=== PATIENT | male | born 1985 | race Caucasian/White ===

== ENCOUNTER 2016-10-30 20:58 | Emergency (ER) | payer SELFPAY ==
[2016-10-30 21:21] VITALS: BP 128/79; RESP 20; TEMP 98
--- NOTE | 2016-10-30 21:32 | ED PDOC ---
HPI: Chest Pain Time Seen by Provider: 10/30/16 21:23 Chief Complaint (Nursing): Palpitations Chief Complaint (Provider): chest pain, palpitations History Per: Patient Additional Complaint(s): 30-year-old male with history of acid reflux presents to emergency department with chest pain and palpitations that started 2 hours prior to arrival. [place] [employer] [place] developed palpitations. Patient wears an [employer] watch and states the watch read his heart rate as 180 [place]. Patient complains of feeling run down but denies fever, chills, cough or other URI symptoms. Patient arrived from the [place] and a half ago and is here on vacation. Patient also complains of mild shortness of breath. Patient also reports that he had 1 episode of watery, non-bloody diarrhea earlier today as well with no associated nausea or vomiting. Past Medical History Reviewed: Historical Data, Nursing Documentation, Vital Signs Vital Signs: Last Vital Signs Temp 98.0 F 10/30/16 21:19 Pulse 119 H 10/30/16 21:19 Resp 20 10/30/16 21:19 BP 128/79 10/30/16 21:19 Pulse Ox 99 10/30/16 23:45 - Medical History PMH: GERD - Surgical History Surgical History: No Surg Hx - Family History Family History: States: No Known Family Hx - Living Arrangements Living Arrangements: With Family - Social History Current smoker - smoking cessation education provided: Yes (sometimes) Alcohol: None Drugs: Denies - Allergies Allergies/Adverse Reactions: Allergies Allergy/AdvReac Type Severity Reaction Status Date / Time No Known Allergies Allergy Verified 10/30/16 21:19 ARTEMIO Risk Score for UA/NSTEMI - ARTEMIO Risk Score Age > 64: NO 3 or more CAD Risk Factors: NO Known CAD (Stenosis greater than 50%): NO Aspirin use in past 7 days: NO Severe Angina: NO EKG ST changes greater than 0.5mm: NO Positive Cardiac Marker: NO ARTEMIO Score: 0 Risk %: 5% Curb-65 Severity Score - CURB-65 Severity Score Confusion: No Bun >19mg/dl (>7mmol/L): No Respiratory Rate greater than/equal to 30: No Systolic BP <90 or Diastolic BP less than/equal 60mmHg: No Age >64: No Curb-65 Score: 0 Percentage 30-day mortality: 0.6% Wells Criteria for PE - Wells Criteria for Pulmonary Embolism Clinical Signs and Symptoms of DVT: No P.E is #1 Diagnosis, or Equally Likely: No Heart Rate >100: Yes Immobilization at least 3 days;Surgery previous 4 weeks: No Previous, objectively diagnosed PE or DVT: No Hemoptysis: No Malignancy w/treatment within 6 months, or palliative: No Total Score: 1.5 Review of Systems ROS Statement: Except As Marked, All Systems Reviewed And Found Negative Constitutional: Negative for: Fever, Chills Cardiovascular: Positive for: Chest Pain, Palpitations Respiratory: Positive for: Shortness of Breath. Negative for: Cough, SOB with Exertion Gastrointestinal: Positive for: Diarrhea (x 1). Negative for: Nausea, Vomiting , Abdominal Pain Neurological: Positive for: Dizziness. Negative for: Altered Mental Status, Headache Physical Exam - Reviewed Nursing Documentation Reviewed: Yes Vital Signs Reviewed: Yes - Physical Exam Appears: Positive for: Well, Non-toxic, No Acute Distress Head Exam: Positive for: ATRAUMATIC, NORMAL INSPECTION Skin: Negative for: Diaphoresis, Rash Eye Exam: Positive for: Normal appearance, EOMI, PERRL Cardiovascular/Chest: Positive for: Regular Rate, Rhythm Respiratory: Positive for: Normal Breath Sounds. Negative for: Wheezing, Respiratory Distress Gastrointestinal/Abdominal: Positive for: Soft. Negative for: Tenderness, Distended, Guarding Extremity: Positive for: Normal ROM. Negative for: Pedal Edema Neurologic/Psych: Positive for: Alert, Oriented - Laboratory Results Result Diagrams: 10/30/16 21:59 10/30/16 21:59 - ECG Interpretation Of ECG: Sinus tach 119, no acute finding, reviewed by PA and ED attending O2 Sat by Pulse Oximetry: 99 Pulse Ox Interpretation: Normal - Other Rad CXR X-Ray: Interpreted by Me, Viewed By Me X-Ray Interpretation: no acute finding Medical Decision Making Medical Decision Makin30 year old with palpitations and chest pain Plan: EKG CXR CBC CMP Trop D-Dimer IVF Flu swab Patient is aware of all diagnostic testing results, all questions answered. Patient feels much better after fluid bolus. He states chest pain and palpitations have resolved. Repeat vital signs are normal, heart rate now at 92. Patient was instructed to drink plenty of fluids and was advised to follow up with primary doctor upon returning home. Patient is aware he can return to ED at any time if acutely worse. Disposition - Clinical Impression Clinical Impression: Palpitations - Patient ED Disposition Is Patient to be Admitted: No Counseled Patient/Family Regarding: Studies Performed, Diagnosis, Need For Followup - Disposition Referrals: [facility] [Outside] Disposition: Routine/Home Disposition Time: 23:42 Condition: IMPROVED Additional Instructions: Drink plenty of fluids and get plenty of rest. Follow-up with primary doctor or return to emergency department any time if acutely worse. Instructions: Palpitations (ED) Forms: [employer] (Upper Sorbian) Results - Lab Results Lab Results: 10/30/16 10/30/16 10/30/16 23:25 22:03 21:59 WBC RBC Hgb Hct MCV MCH MCHC RDW Plt Count MPV Neut % (Auto) Lymph % (Auto) Chambers % (Auto) Eos % (Auto) Baso % (Auto) Neut # Lymph # Chambers # Eos # Baso # D-Dimer, Quantitative Sodium Potassium Chloride Carbon Dioxide Anion Gap BUN Creatinine Est GFR ( Amer) Est GFR (Non-Af Amer) Random Glucose Calcium Total Bilirubin AST ALT Alkaline Phosphatase Troponin I Total Protein Albumin Globulin Albumin/Globulin Ratio Urine Opiates Screen Negative Urine Methadone Screen Negative Ur Barbiturates Screen Negative Ur Phencyclidine Scrn Negative Ur Amphetamines Screen Negative U Benzodiazepines Scrn Negative U Oth Cocaine Metabols Negative U Cannabinoids Screen Negative Alcohol, Quantitative < 10 Influenza Typ A,B (EIA) Negative for flu a/b 10/30/16 10/30/16 10/30/16 21:59 21:59 21:59 WBC 10.2 RBC 5.21 Hgb 14.9 Hct 44.3 MCV 85.1 MCH 28.7 MCHC 33.7 RDW 13.8 Plt Count 256 MPV 10.0 Neut % (Auto) 47.5 L Lymph % (Auto) 37.0 Chambers % (Auto) 7.8 Eos % (Auto) 6.5 H Baso % (Auto) 1.2 Neut # 4.8 Lymph # 3.8 Chambers # 0.8 Eos # 0.7 Baso # 0.1 D-Dimer, Quantitative 115 Sodium 140 Potassium 3.9 Chloride 103 Carbon Dioxide 25 Anion Gap 16 BUN 12 Creatinine 1.0 Est GFR ( Amer) > 60 Est GFR (Non-Af Amer) > 60 Random Glucose 94 Calcium 9.5 Total Bilirubin 0.8 AST 54 ALT 123 H Alkaline Phosphatase 67 Troponin I < 0.0120 Total Protein 7.9 Albumin 4.6 Globulin 3.3 Albumin/Globulin Ratio 1.4 Urine Opiates Screen Urine Methadone Screen Ur Barbiturates Screen Ur Phencyclidine Scrn Ur Amphetamines Screen U Benzodiazepines Scrn U Oth Cocaine Metabols U Cannabinoids Screen Alcohol, Quantitative Influenza Typ A,B (EIA)
[2016-10-30] MEDS ORDERED: Sodium Chloride 0.9% 1,000 ML IV STA (21:33)
[2016-10-30 22:04] LABS: BASO # 0.1 K/uL (0.0-0.2); BASO % 1.2 % (0.0-2.0); EOS # 0.7 K/uL (0.0-0.7); EOS % 6.5 % (0.0-4.0); HEMATOCRIT 44.3 % (35.0-51.0); LYMPH # 3.8 K/uL (1.0-4.3); MEAN CELL VOLUME 85.1 fl (80.0-94.0); MEAN CORPUSCULAR HEMOGLOBIN 28.7 pg (27.0-31.0); MEAN CORPUSCULAR HGB CONC 33.7 g/dL (33.0-37.0); MONO # 0.8 K/uL (0.0-0.8); MONO % 7.8 % (0.0-10.0); NEUT # 4.8 K/uL (1.8-7.0); NEUT % 47.5 % (50.0-75.0); NRBC % 0.2 % (0.0-0.0); RED CELL DISTRIBUTION WIDTH 13.8 % (11.5-14.5); WHITE BLOOD COUNT 10.2 K/uL (4.8-10.8)
[2016-10-30 22:14] LABS: ALB/GLOB RATIO 1.4 (1.0-2.1); ALKALINE PHOSPHATASE 67 U/L (38-126); ALT/SGPT 123 U/L (21-72); AST/SGOT 54 U/L (17-59); BILIRUBIN,TOTAL 0.8 mg/dl (0.2-1.3); BLOOD UREA NITROGEN 12 mg/dl (9-20); CALCIUM 9.5 mg/dL (8.4-10.2); CARBON DIOXIDE 25 mmol/L (22-30); CHLORIDE 103 mmol/L (98-107); GFR AFRICAN-AMERICAN > 60; GLUCOSE,RANDOM 94 mg/dL (75-110); POTASSIUM 3.9 MMOL/L (3.6-5.0); SODIUM 140 mmol/l (132-148); TOTAL PROTEIN 7.9 G/DL (6.3-8.2)
[2016-10-31 00:06] VITALS: PULSE 88; O2SAT 96
--- NOTE | 2016-10-31 12:46 | RAD ---
HISTORY: palpitations COMPARISON: No prior. FINDINGS: LUNGS: No active pulmonary disease. PLEURA: No significant pleural effusion identified, no pneumothorax apparent. CARDIOVASCULAR: Normal. OSSEOUS STRUCTURES: No significant abnormalities. VISUALIZED UPPER ABDOMEN: Normal. OTHER FINDINGS: None. IMPRESSION: No active disease.
== END 2016-10-31 00:06 | disposition home or self-care (01) ==
LOC: H.ER 20:58
DX: R00.2 Palpitations (principal); K21.9 Gastro-esophageal reflux disease without esophagitis
CPT/HCPCS: 71010; 80053; 84484; 85025; 85378; 87804; 96360; 99282; G0480; J7040